=== PATIENT | male | born 1980 | race African-American/Black ===

== ENCOUNTER 2024-04-14 17:19 | Emergency (ER) | payer SELFPAY ==
[~2024-04-14] VITALS: Ht 190.5 cm; Wt 90.7 kg
[2024-04-14 17:21] VITALS: O2SAT 98
[2024-04-14 17:32] VITALS: BP 121/78; PULSE 88; RESP 16; TEMP 98.3; O2SAT 100
== END 2024-04-14 22:56 | disposition left against medical advice (07) ==
LOC: ER 17:19
DX: M54.50 Low back pain, unspecified (principal); Z53.21 Procedure and treatment not carried out due to patient leaving prior to being seen by health care provider